=== PATIENT | female | born 1970 | race Caucasian/White ===

== ENCOUNTER 2018-03-05 19:10 | Emergency (ER) | payer MEDICARE ==
[~2018-03-05] VITALS: Ht 177.8 cm; Wt 49.9 kg
[2018-03-05] MEDS ORDERED: Bentyl10 MG (19:36)
[2018-03-05] MEDS ORDERED: LEVSOD150 PO (19:36)
[2018-03-05] MEDS ORDERED: ONDA4ODT MM (19:36)
[2018-03-05] MEDS ORDERED: Maxalt10 MG (19:36)
[2018-03-05] MEDS ORDERED: CEPH500 PO (19:37)
[2018-03-05] MEDS ORDERED: Valtrex1000 MG PO (20:00)
== END 2018-03-05 20:25 | disposition home or self-care (01) ==
LOC: ER 19:10
DX: B02.9 Zoster without complications (principal); F41.9 Anxiety disorder, unspecified; E03.9 Hypothyroidism, unspecified; F17.200 Nicotine dependence, unspecified, uncomplicated; Z79.899 Other long term (current) drug therapy
CPT/HCPCS: 99282

== ENCOUNTER → 2020-09-29 | Outpatient (CLI) | payer MEDICARE, OTHER ==
[~2020-09-29] MED LIST: Bentyl10 MG; CEPH500 PO; LEVSOD150 PO; Maxalt10 MG; ONDA4ODT MM; Valtrex1000 MG PO
== END | disposition home or self-care (01) ==
LOC: LAB EV 15:02 → LAB SHORT 15:02
DX: E03.9 Hypothyroidism, unspecified (principal)
CPT/HCPCS: 84443

== ENCOUNTER 2024-01-24 07:23 | Day surgery (SDC) | payer OTHER | END 2024-01-24 22:52 | disposition home or self-care (01) | LOC: CT 07:23 | DX: R07.89 Other chest pain (principal); I50.20 Unspecified systolic (congestive) heart failure; E78.5 Hyperlipidemia, unspecified | CPT/HCPCS: 75574; Q9967 ==